=== PATIENT | female | born 1975 | race Two or more races ===

== ENCOUNTER 2016-08-30 09:58 | Outpatient (CLI) | payer BC, OTHER | END 2016-08-30 09:59 | disposition home or self-care (01) | LOC: NC 09:58 | PROVIDERS: ATTEND Family Medicine | DX: Z71.3 Dietary counseling and surveillance (principal); O09.521 Supervision of elderly multigravida, first trimester; O99.211 Obesity complicating pregnancy, first trimester; Z3A.12 12 weeks gestation of pregnancy ==

== ENCOUNTER 2016-09-26 05:35 | Outpatient (CLI) | payer BC, OTHER ==
[2016-09-26 06:19] VITALS: BMI 35.5
[2016-09-26 06:54] LABS: PH,URINE 6.5 (5.0-8.0); URINE BILIRUBIN NEGATIVE (NEGATIVE); URINE BLOOD 4+ (NEGATIVE); URINE GLUCOSE (UA) NEGATIVE (NEGATIVE); URINE LEUKOCYTE ESTERASE 1+ (NEGATIVE); URINE NITRITE NEGATIVE (NEGATIVE); URINE PROTEIN 2+ (NEGATIVE); URINE UROBILINOGEN NORMAL (0-1 mg/dl)
[2016-09-26 06:55] LABS: URINE APPEARANCE BLOODY; URINE COLOR RED
[2016-09-26 07:01] LABS: URINE BACTERIA RARE; URINE RBC >100 /hpf; URINE WBC 15-20 /hpf
[2016-09-26] MEDS ORDERED: CEFTRIAXONE SODIUM 1 G VIAL IM ONE ×2 (08:15)
== END 2016-09-26 08:30 | disposition home or self-care (01) ==
LOC: FBCOUT 05:35 → FBC 05:35 → FBCOUT 08:30
PROVIDERS: ATTEND Family Medicine
DX: O26.899 Other specified pregnancy related conditions, unspecified trimester (principal); M54.9 Dorsalgia, unspecified; Z3A.00 Weeks of gestation of pregnancy not specified
CPT/HCPCS: 96372; 87086; 87186; 81001; 59050; J0696 ×2; G0463